=== PATIENT | male | born 1950 | race Caucasian/White ===

== ENCOUNTER 2019-03-15 09:58 | Outpatient (REF) | payer MEDICARE, SELFPAY ==
[2019-03-15 14:39] LABS: Calculated LDL 131 mg/dL; Cholesterol 205 mg/dL (50-200); HDL Cholesterol 59 mg/dL (40-60); Triglyceride 75 mg/dL (30-150)
== END 2019-03-15 10:18 ==
LOC: NCHCN 09:58
PROVIDERS: PCP Internal Medicine; Visit Provider Internal Medicine
DX: Z00.00 Encounter for general adult medical examination without abnormal findings (principal); R03.0 Elevated blood-pressure reading, without diagnosis of hypertension; H93.13 Tinnitus, bilateral
CPT/HCPCS: 80061

== ENCOUNTER 2020-11-10 21:31 | Outpatient (REF) | payer MEDICARE, SELFPAY ==
[2020-11-10 21:43] LABS: Calculated LDL 148 mg/dL (<100); Cholesterol 220 mg/dL (<200); HDL Cholesterol 55 mg/dL (40-60); Triglyceride 88 mg/dL (<150)
== END 2020-11-10 21:32 | disposition home or self-care (01) ==
LOC: NCHCN 21:31
PROVIDERS: PCP Internal Medicine; Visit Provider Internal Medicine
DX: E78.89 Other lipoprotein metabolism disorders (principal)
CPT/HCPCS: 80061

== ENCOUNTER 2020-11-14 03:20 | Outpatient (CLI) | payer MEDICARE, SELFPAY ==
--- NOTE | 2020-11-14 | DI.US_ITS ---
APPROVED REPORT EXAM: Comprehensive 2D, Doppler, and color-flow Echocardiogram Patient Location: Out-Patient Associate Dentist: Kari Ontiveros RDCS (AE) Indications: Systolic heart murmur Other Information Study Quality: Good Conclusion Left Ventricle : The left ventricle is normal size. The left ventricular ejection fraction is within the normal range. There is normal left ventricular wall thickness. There is normal LV segmental wall motion. The left ventricular diastolic function is normal. LVEF is 60-65%. Right Ventricle : The right ventricle is normal size. The right ventricular systolic function is norm al. The RVSP is 25.3mmHg. Atria : Left atrium is mildly dilated. Right atrium is mildly dilated. Aortic Valve : Aortic valve is calcified. Aortic valve is trileaflet. No aortic regurgitation is pres ent. Mild aortic stenosis. Peak aortic valve gradient is 20.9mmHg. Highest mean aortic valve gradient is 11.8mmHg. Calculated MARIS by the continuity equation is 2.08cm2. Mitral Valve : Mild mitral annular calcification. Mitral regurgitation jet is eccentrically directed. Moderate mitral regurgitation. Great Vessels : The aortic root is normal in size. The ascending aorta is mildly dilated. Aortic arch is normal in caliber. IVC is normal in size and collapses >50% with inspiration. Please see remainder of study for further details. Wall motion Left Ventricle The left ventricle is normal size. The left ventricular ejection fraction is within the normal range. There is normal left ventricular wall thickness. There is normal LV segmental wall motion. The left ventricular diastolic function is normal. There is no ventricular septal defect visualized. LVEF is 6 0-65%. Right Ventricle The right ventricle is normal size. The right ventricular systolic function is normal. The RVSP is 25 .3mmHg. Atria Left atrium is mildly dilated. Right atrium is mildly dilated. The interatrial septum is intact with no evidence for an atrial septal defect. Aortic Valve Aortic valve is calcified. Aortic valve is trileaflet. Mild aortic stenosis. Peak aortic valve gradie nt is 20.9mmHg. Highest mean aortic valve gradient is 11.8mmHg. Calculated MARIS by the continuity equa tion is 2.08cm2. No aortic regurgitation is present. Mitral Valve Mild mitral annular calcification. No evidence of mitral valve stenosis. Mitral regurgitation jet is eccentrically directed. Moderate mitral regurgitation. Tricuspid Valve The tricuspid valve is normal in structure. There is no tricuspid valve stenosis. Trace tricuspid reg urgitation. Pulmonic Valve The pulmonary valve is normal in structure. There is no pulmonic valvular stenosis. Trace pulmonic re gurgitation. Great Vessels The aortic root is normal in size. The ascending aorta is mildly dilated. Aortic arch is normal in ca liber. IVC is normal in size and collapses >50% with inspiration. Pericardium There is no pericardial effusion. 2D Dimensions IVSD d PLAX 0.93 cm M: 0.6-1.2 LV Vol A2C d MOD 108.6 mL LVPW d PLAX 0.94 cm M: 0.6 - 1.2 LV Vol A4C d MOD 142.8 mL LVID d PLAX 5.78 cm M: 4.2 - 5.8 LA vol/ BSA A2C s A-L 38.7 mL/m2 LVDs 3.80 cm M: 2.5 - 4.0 LA vol/ BSA A4C s A-L 53.3 mL/m2 Ao Root d 3.17 cm M: 3.1 - 3.7 LA Vol/ BSA Biplane s A-L 50.9 mL/m2 RA Area A4C 20.93 cm2 LA Area A4C s MOD 29.10 cm2 RA Vol/ BSA A4C s A-L 32.9 mL/m2 LA Area A2C s MOD 22.08 cm2 Ao Asc Diam d 3.62 cm M: 2.6 - 3.4 LV EF A4C MOD 60.4 % LV EF Teichholz 62.3 % LV EF A2C MOD 62.8 % LVEF (Cesar's) 61.62 % M: 52 - 72 LV EF Biplane MOD 61.6 % LV Volume 95.53 mL M: 62 - 150 SV 77.84 mL LV Volume Index 48.98 mL/m2 M: 34 - 74 SV Index 39.89 mL/m2 LV Vol Biplane MOD 126.3 mL FS 34.05 % M-Mode TAPSE 2.73 cm (M/F) >1.7 LV Diastology MV E' medial 0.086 (>0.07 m/s) E/A Ratio 1.3 LV E/e MED 11.45 (<14) MV E Vmax 0.99 (0.4-1.3 m/s) MV E' lateral 0.125 (>0.1 m/s) MV A Vmax 0.75 (0.4-1.3 m/s) LV E/e LAT 7.90 (<14) MV E/A Ratio 1.25 MV E/E' medial 11.50 MV E/E' lateral 7.91 Aortic Valve LVOT Area 4.13 cm2 AoV Area Vmax 2.08 cm2 LVOT Vmax 1.15 m/s AoV Area/ BSA (Vmax) 1.06 cm2/m2 LVOT Mean Malik. 0.84 m/s MARIS Mean Malik. 2.20 cm2 LVOT Peak Grad 5.3 mmHg MARIS Mean Malik. Index 1.13 cm2/m2 LVOT Mean Grad 3.1 mmHg LVOT VTI 0.254 m LVOT Diam s 2.25 cm AoV Vmax 2.29 m/s Velocity Ratio 0.50 AoV Mean Malik. 1.58 m/s AoV Peak Grad 20.9 mmHg LVOT SV 105.04 mL AoV Mean Grad 11.8 mmHg AoV VTI 0.446 m AoV Area VTI 2.36 cm2 AoV Area/ BSA (VTI) 1.21 cm/m2 Mitral Valve MV DT 220 (160-240 msec) MR Vmax 5.29 m/s MV PHT 64 msec MR VTI 1.704 m MV Area PHT 3.45 cm2 MR Peak Grad 112.0 mmHg MV VTI 0.348 m MR Mean Grad 81.2 mmHg MV VTI Annulus 0.374 m MR PISA Radius 0.70 cm MV Area VTI 3.27 (4.0-6.0 cm2) MR EROA 0.20 cm2 MR Aliasing Velocity 0.35 m/s MR PISA 3.08 cm2 Pulmonary Valve PV Vmax 1.21 (0.5-1.5 m/s) RVOT Peak Gr. 2.03 mmHg PV Peak Grad 5.9 mmHg RVOT Mean Gr. 1.00 mmHg PV Mean Grad 2.8 mmHg RVOT VTI 0.152 m PV VTI 0.247 m RVOT Vmax 0.71 m/s Tricuspid Valve TR Peak Grad 22.2 mmHg TR Vmax 2.36 m/s RA Pressure 3.00 mmHg RVSP (TR) 25.3 mmHg
== END 2020-11-14 03:40 ==
PROVIDERS: PCP Internal Medicine; Visit Provider Internal Medicine
DX: R01.1 Cardiac murmur, unspecified (principal); I08.0 Rheumatic disorders of both mitral and aortic valves
CPT/HCPCS: 93306

== ENCOUNTER 2021-11-09 10:17 | Outpatient (REF) | payer MEDICARE, SELFPAY ==
[2021-11-09 14:42] LABS: HGB 13.6 g/dL (13.5-17.5); MCH 30.6 pg (27.0-33.0); MCHC 33.2 % (32.0-36.0); MCV 92 fL (80-95); MPV 10.7 fL (8.0-11.0); Platelet Count 178 10^3/uL (130-400); RBC 4.44 10^6/uL (4.36-5.78); RDW-SD 41.1 fL; WBC 3.67 10^3/uL (4.4-10.8)
[2021-11-09 16:07] LABS: ALT 25 U/L (16-63); AST 27 U/L (15-37); Albumin 4.1 g/dL (3.4-5.0); Alkaline Phosphatase 51 U/L (46-116); Anion Gap 8.5 mmol/L (3-11); BUN 16 mg/dL (7-18); Bilirubin, Total 1.4 mg/dL (0.2-1.0); CO2 27.5 mmol/L (21.0-32.0); CREATININE 0.8 mg/dL (0.70-1.30); Calcium 8.3 mg/dL (8.5-10.1); Calculated LDL 75 mg/dL (<100); Chloride 104 mmol/L (98-107); Cholesterol 154 mg/dL (<200); Glucose 89 mg/dL (74-106); HDL Cholesterol 69 mg/dL (40-60); Potassium 4.2 mmol/L (3.5-5.1); Sodium 140 mmol/L (136-145); Total Protein 7.1 g/dL (6.4-8.2); Triglyceride 52 mg/dL (<150)
== END 2021-11-09 10:18 | disposition home or self-care (01) ==
LOC: NCHCN 10:17
PROVIDERS: PCP Internal Medicine; Visit Provider Family Medicine
DX: R03.0 Elevated blood-pressure reading, without diagnosis of hypertension (principal); R79.89 Other specified abnormal findings of blood chemistry
CPT/HCPCS: 80053; 80061; 85027

== ENCOUNTER 2023-01-27 09:01 | Outpatient (REF) | payer MEDICARE, SELFPAY ==
[2023-01-27 16:51] LABS: ALT 25 U/L (16-63); AST 32 U/L (15-37); Albumin 4.3 g/dL (3.4-5.0); Alkaline Phosphatase 47 U/L (46-116); Anion Gap 7.9 mmol/L (3-11); BUN 22 mg/dL (7-18); Bilirubin, Total 0.9 mg/dL (0.2-1.0); CO2 29.1 mmol/L (21.0-32.0); CREATININE 0.9 mg/dL (0.70-1.30); Calcium 9.3 mg/dL (8.5-10.1); Chloride 102 mmol/L (98-107); Estimated GFR 91.31 (mL/min/1.73m2); Glucose 109 mg/dL (74-106); Sodium 139 mmol/L (136-145); Total Protein 7.7 g/dL (6.4-8.2)
== END 2023-01-27 09:02 | disposition home or self-care (01) ==
LOC: NCHCN 09:01
PROVIDERS: PCP Internal Medicine; Visit Provider Family Medicine
DX: E78.5 Hyperlipidemia, unspecified (principal); I34.0 Nonrheumatic mitral (valve) insufficiency
CPT/HCPCS: 80053

== ENCOUNTER → 2023-04-26 00:29 | Outpatient (CLI) | payer MEDICARE, SELFPAY ==
--- NOTE | 2023-04-26 | DI.US_ITS ---
APPROVED REPORT EXAM: Comprehensive 2D, Doppler, and color-flow Echocardiogram Patient Location: Out-Patient [employer] Operator Helper: Kari Ontiveros RDCS (AE) Indications: Mitral regurgitation Other Information Study Quality: Adequate Conclusion Normal left ventricular wall thickness and chamber size. Ejection fraction is 60%. Wall motion is n ormal Normal right ventricular size and systolic function Left atrium is moderately dilated. Right atrial size is normal Aortic valve is calcified and trileaflet without stenosis or regurgitation Mild mitral annular calcification. Normal mitral valve with mild systolic prolapse. There is modera te eccentric mitral regurgitation Mildly dilated ascending aorta measuring 3.51 cm Wall motion Left Ventricle The left ventricle is normal size. The left ventricular systolic function is normal. The left ventric ular ejection fraction is within the normal range. There is normal left ventricular wall thickness. T here is normal LV segmental wall motion. There is no ventricular septal defect visualized. LVEF is 60 %. Right Ventricle The right ventricle is normal size. The right ventricular systolic function is normal. Atria Left atrium is moderately dilated. Right atrium is normal in size The interatrial septum is intact wi th no evidence for an atrial septal defect. Aortic Valve Aortic valve is calcified. Aortic valve is trileaflet. No hemodynamically significant valvular aortic stenosis. No aortic regurgitation is present. Mitral Valve The mitral valve is normal in structure. Mild mitral annular calcification. No evidence of mitral neftaly ve stenosis. Moderate mitral regurgitation. Mitral regurgitation jet is eccentrically directed. mild mitral valve prolapse. Tricuspid Valve The tricuspid valve is normal in structure. There is no tricuspid valve stenosis. Trace tricuspid reg urgitation. Pulmonic Valve The pulmonary valve is normal in structure. There is no pulmonic valvular stenosis. There is no pulmo sunita valvular regurgitation. Great Vessels The aortic root is normal in size. The ascending aorta is mildly dilated. Aortic arch is normal in ca liber. IVC is normal in size and collapses >50% with inspiration. Pericardium There is no pericardial effusion. 2D Dimensions IVSD d PLAX 0.78 cm M: 0.6-1.2 Ao Root d 3.48 cm M: 3.1 - 3.7 LVPW d PLAX 0.79 cm M: 0.6 - 1.2 Ao Asc Diam d 3.51 cm M: 2.6 - 3.4 LVID d PLAX 5.66 cm M: 4.2 - 5.8 LVDs 3.98 cm M: 2.5 - 4.0 LV EF Teichholz 56.1 % FS 29.67 % LV EDV (Teich) 157.4 mL LV ESV (Teich) 69.2 mL M-Mode TAPSE 3.41 cm (M/F) >1.7 Auto EF LV EDV A4C 155.5 mL LV EDV A2C 198.0 mL LV EDV BP 173.9 mL LV ESV A4C 65.1 mL LV ESV A2C 89.2 mL LV ESV BP 75.1 mL LVEF(%) A4C 58.2 % LVEF(%) A2C 55.0 % LVEF(%) BP 56.8 % LV SV A4C 90.5 ml LV SV A2C 108.8 ml LV SV BP 98.8 ml LV CO A4C 6.7 L/min LV CO A2C 8.0 L/min LV CO BP 7.4 L/min HR A4C 73.77 BPM HR A2C 73.77 BPM LV EDV Index (BP) LV Strain Long Pk Overal Avg (s) 19.70 RV Strain Global Peak Long. Strain A4C 17.29 Global Peak Long. Strain A4C FW 20.75 LA Volume LA Length A4C 6.4 cm LA Length A2C 4.9 cm LA Area A4C s 26.17 cm2 LA Area A2C s 20.19 cm2 LA Vol A4C A-L 90.37 mL LA Vol A2C A-L 71.24 mL LA Vol Biplane A-L 92.4 mL LA Vol/BSA A4C A-L LA Vol/BSA A2C A-L LA Vol/BSA BP A-L 47.9 mL/m2 LA Vol A4C MOD 81.9 mL LA Vol A2C MOD 70.3 mL LA Vol BP MOD 85.6 mL RA Volume RA Area A4C 14.3 cm2 RA ESV A4C (A-L) 33.3mL RA Vol/BSA A4C A-L RA Length A4C 5.2 cm RA ESV A4C (MOD) 30.5mL LV Diastology MV E' medial 0.095 (>0.07 m/s) MV E Vmax 0.98 (0.4-1.3 m/s) MV E/E' MED 10.34 (<14) MV A Vmax 0.80 (0.4-1.3 m/s) MV E' lateral 0.124 (>0.1 m/s) E/A Ratio 1.2 MV E/E' LAT 7.90 (<14) MV E' Average 0.109 m/s MV E/E'(average) 8.96 Aortic Valve AoV Vmax 2.43 m/s LVOT Vmax 1.12 m/s AoV Peak Grad 23.7 mmHg LVOT Peak Grad 5.0 mmHg AoV Area (Vmax) 1.47 cm2 LVOT VTI 0.248 m AoV VTI 0.547 m LVOT Mean Grad 2.6 mmHg AoV Mean Malik. 1.80 m/s LVOT SV 79.65 mL AoV Mean Grad 14.5 mmHg LVOT Diam s 2.00 cm AoV Area (VTI) 1.46 cm2 Velocity Ratio 0.46 Mitral Valve MV DT 294 (160-240 msec) MV Vmax TIPS 0.96 m/s MV Mean Grad 1.9 (<2mmHg) MV VTI 0.304 m Pulmonary Valve PV Vmax 1.24 (0.5-1.5 m/s) RVOT Vmax 0.63 m/s PV Peak Grad 6.2 mmHg RVOT Peak Gr. 1.6 mmHg PV Mean Malik 0.89 m/s RVOT VTI 0.165 m PV Mean Grad 3.4 mmHg RVOT Mean Gr. 1.0 mmHg Tricuspid Valve RA Pressure 3.00 mmHg TR Vmax 2.34 m/s TV S' 0.15 m/s TR Peak Grad 21.8 mmHg RVSP (TR) 24.9 mmHg
== END ==
PROVIDERS: PCP Internal Medicine; Visit Provider Family Medicine
DX: I34.0 Nonrheumatic mitral (valve) insufficiency (principal)
CPT/HCPCS: 93306

== ENCOUNTER 2024-02-01 09:05 | Outpatient (REF) | payer MEDICARE, SELFPAY ==
[2024-02-01 15:32] LABS: ALT 14 U/L (16-63); AST 28 U/L (15-37); Alkaline Phosphatase 46 U/L (46-116); Anion Gap 5.3 mmol/L (3-11); BUN 11 mg/dL (7-18); Bilirubin, Total 1.03 mg/dL (0.2-1.0); CO2 30.7 mmol/L (21.0-32.0); CREATININE 0.8 mg/dL (0.70-1.30); Calculated LDL 65 mg/dL (<100); Chloride 105 mmol/L (98-107); Cholesterol 143 mg/dL (<200); Estimated GFR 94.03 (mL/min/1.73m2); Glucose 102 mg/dL (74-106); HDL Cholesterol 68 mg/dL (40-60); Potassium 4.3 mmol/L (3.5-5.1); Sodium 141 mmol/L (136-145); Total Protein 6.9 g/dL (6.4-8.2); Triglyceride 50 mg/dL (<150)
== END 2024-02-01 09:06 | disposition home or self-care (01) ==
LOC: NCHCN 09:05
PROVIDERS: PCP Family Medicine; Visit Provider Family Medicine
DX: E78.5 Hyperlipidemia, unspecified (principal)
CPT/HCPCS: 80053; 80061

== ENCOUNTER 2024-12-17 11:01 | Outpatient (REF) | payer MEDICARE, SELFPAY ==
--- NOTE | 2024-12-17 10:00 | SKI_PTH ---
PATIENT: Merrick Robins LOC: [facility] U#:[id number] AGE/SX: 74/M ROOM: RE12/17/[address]: Shashank Power : 1950 BED: DIS: 12/17/2024 SPEC #: [id number] RECD: 12/17/24 17:46 STATUS: ANDRÉS REQ #: [id number] GIDEON: 12/17/24 10:[address]: Shashank Power DEPT: Surgical Specimen RECD BY: Michelle Pacheco Tissues: 1 - SKIN BIOPSY(SHAVE/PUNCH) Procedures: SKIN LEVEL 4 Comments: [id number]
== END 2024-12-17 11:02 | disposition home or self-care (01) ==
LOC: NCHCN 11:01
PROVIDERS: PCP Family Medicine; Visit Provider Family Medicine
DX: L30.8 Other specified dermatitis (principal)
CPT/HCPCS: 88305

== ENCOUNTER 2025-02-06 10:23 | Outpatient (REF) | payer MEDICARE, SELFPAY ==
[2025-02-06 15:05] LABS: Abs Immature Grans 0.06 10^3/uL (0.0-0.06); HCT 35.8 % (40.0-50.0); HGB 12.4 g/dL (13.5-17.5); Immature Grans % 2.7 %; MCH 32.7 pg (27.0-33.0); MCHC 34.6 % (32.0-36.0); MCV 95 fL (80-95); MPV 10.4 fL (8.0-11.0); Platelet Count 132 10^3/uL (130-400); RBC 3.79 10^6/uL (4.36-5.78); RDW 12.8 % (11.8-14.1); RDW-SD 44.2 fL; WBC 2.26 10^3/uL (4.4-10.8)
[2025-02-06 15:29] LABS: ALT 25 U/L (16-63); AST 24 U/L (15-37); Albumin 4.0 g/dL (3.4-5.0); Alkaline Phosphatase 41 U/L (46-116); Anion Gap 7.5 mmol/L (3-11); BUN 17 mg/dL (7-18); Bilirubin, Total 0.7 mg/dL (0.2-1.0); CO2 29.5 mmol/L (21.0-32.0); Calcium 8.9 mg/dL (8.5-10.1); Chloride 105 mmol/L (98-107); Estimated GFR 97.29 (mL/min/1.73m2); Glucose 88 mg/dL (74-106); Potassium 4.6 mmol/L (3.5-5.1); Sodium 142 mmol/L (136-145); Total Protein 6.9 g/dL (6.4-8.2)
== END 2025-02-06 10:24 | disposition home or self-care (01) ==
LOC: NCHCN 10:23
PROVIDERS: PCP Family Medicine; Visit Provider Family Medicine
DX: E78.5 Hyperlipidemia, unspecified (principal); K62.5 Hemorrhage of anus and rectum
CPT/HCPCS: 80053; 82784; 83516; 85025

== ENCOUNTER 2025-02-20 15:13 | Outpatient (REF) | payer MEDICARE, SELFPAY ==
[2025-02-20 21:21] LABS: Iron 129 ug/dL (65-175); Total Iron Binding Capacity 247 ug/dL (250-450); Transferrin Sat 52 % (20-55)
[2025-02-20 21:45] LABS: Ferritin 175 ng/mL (26-388); Vitamin B12 459 pg/mL (193-986)
[2025-02-20 21:47] LABS: Folate > 20.0 ng/mL (8.6-20.0)
== END 2025-02-20 15:14 | disposition home or self-care (01) ==
LOC: NCHCN 15:13
PROVIDERS: PCP Family Medicine; Visit Provider Family Medicine
DX: Z00.00 Encounter for general adult medical examination without abnormal findings (principal)
CPT/HCPCS: 82607; 82728; 82746; 83540; 83550